=== PATIENT | male | born 2000 | race Hispanic/Latino ===

== ENCOUNTER → 2024-01-07 | Day surgery (SDC) | payer OTHER ==
[~2024-01-07] MED LIST: FENTANYL CITRATE/PF 100MCG/2 ML INJ ONE; LACTATED RINGER'S 1,000 ML ONE; LIDOCAINE HCL 2% LOCAL INJ 5 ML SDV VIAL INJ ONE; PHENYLEPHRINE HCL 1% 10 MG/ML VIAL ONE; PROPOFOL IV EMULSION 50 ML IV ONE; SODIUM CHLORIDE 0.9% 100 ML ONE
[2024-01-07 07:27] VITALS: TEMP 97.8
[2024-01-07 07:40] VITALS: BP 122/78; PULSE 95; RESP 16; O2SAT 96
== END | disposition home or self-care (01) ==
LOC: ENDO 05:10
PROVIDERS: ATTEND Internal Medicine Gastroenterology
DX: K20.90 Esophagitis, unspecified without bleeding (principal); K29.50 Unspecified chronic gastritis without bleeding; R09.A2 Foreign body sensation, throat; Z71.3 Dietary counseling and surveillance; E66.01 Morbid (severe) obesity due to excess calories; E66.8 Other obesity; Z71.89 Other specified counseling; Z88.0 Allergy status to penicillin; Z68.42 Body mass index [BMI] 45.0-49.9, adult
CPT/HCPCS: 43239; 43450; J2001; J2371; J2470; J2704; J3010; J7050; J7121